=== PATIENT | male | born 1995 | race Caucasian/White ===

== ENCOUNTER 2022-11-23 20:24 | Emergency (ER) | payer OTHER ==
[~2022-11-23] VITALS: Ht 172.7 cm; Wt 83.9 kg
--- NOTE | 2022-11-23 20:50 | NUR ---
Patient ambulated to room #3, informed of plan of care, assisted into gown and placed on monitor. Awaiting MD exam. No s/s of ayana distress noted, will continue to monitor.
[2022-11-23] MEDS ORDERED: ALBU18HF2 IH (20:51)
[2022-11-23] MEDS ORDERED: HYDROCODONE/APAP 5-325MG TABLET PO ONE (21:00)
[2022-11-23] MEDS ORDERED: ALBUTEROL SULFATE 2.5 MG/3 ML NEBU NEB ONE (21:00)
[2022-11-23] MEDS ORDERED: IBUPROFEN 600 MG TABLET PO ONE (21:00)
[2022-11-23] MEDS ORDERED: IPRATROPIUM BROMIDE 0.5 MG/2.5 ML NEBU NEB ONE (21:00)
[2022-11-23] MEDS ORDERED: predniSONE 10 MG TABLET PO ONE (21:00)
[2022-11-23] MEDS ORDERED: ALBUTEROL SULFATE 2.5 MG/ 0.5 ML NEBU ONE (21:08)
[2022-11-23] MEDS ORDERED: predniSONE 50 MG TABLET ONE (21:09)
[2022-11-23] MEDS ORDERED: IBUPROFEN 600 MG TABLET ONE (21:10)
[2022-11-23] MEDS ORDERED: predniSONE 10 MG TABLET ONE (21:10)
[2022-11-23] MEDS ORDERED: HYDROCODONE/APAP 5-325MG TABLET ONE (21:10)
[2022-11-23] MEDS ORDERED: ALBUTEROL SULFATE 2.5 MG/3 ML NEBU ONE (21:13)
[2022-11-23] MEDS ORDERED: IPRATROPIUM BROMIDE 0.5 MG/2.5 ML NEBU ONE (21:13)
--- NOTE | 2022-11-23 21:16 | NUR ---
COVID swab done #20g established in left ac area, blood collected and sent to lab.
[2022-11-23] MEDS ORDERED: PRED20TA PO (21:22)
[2022-11-23] MEDS ORDERED: ALBU8.5H8 IH (21:22)
[2022-11-23] MEDS ORDERED: HYDR-4209 PO (21:22)
--- NOTE | 2022-11-23 22:19 | NUR ---
Patient feels better okay for discharge home, awaiting ACI.
--- NOTE | 2022-11-23 22:20 | NUR ---
ACI given states understanding, remains stable for discharge home.
[2022-11-23 22:21] VITALS: BP 136/77
== END 2022-11-23 22:26 | disposition home or self-care (01) ==
LOC: ER 20:32
DX: U07.1 COVID-19 (principal); J20.8 Acute bronchitis due to other specified organisms; Z88.0 Allergy status to penicillin; Z87.891 Personal history of nicotine dependence; J45.909 Unspecified asthma, uncomplicated
CPT/HCPCS: 99284; 71045; 87426; 94640; J7512 ×2; J3590

== ENCOUNTER 2023-05-17 16:59 | Emergency (ER) | payer MEDICAID, OTHER ==
[~2023-05-17] VITALS: Ht 172.7 cm; Wt 77.1 kg
[~2023-05-17 16:59] MED LIST: ALBU18HF2 IH; ALBU8.5H8 IH; HYDR-4209 PO; PRED20TA PO
[2023-05-17 17:38] LABS: CARBON DIOXIDE 23 mmol/L (21-32); CHLORIDE 104 mmol/L (98-107); CREATININE 0.8 mg/dL (0.6-1.3); HEMATOCRIT 45.3 % (36.7-47.1); MEAN CORPUSCULAR HEMOGLOBIN 31.8 uug (23.8-33.4); MEAN CORPUSCULAR VOLUME 92.5 fL (73.0-96.2); PLATELET COUNT (AUTO) 292 K/uL (152-348); POTASSIUM 3.7 mmol/L (3.5-5.1); UREA NITROGEN, BLOOD 8 mg/dL (7-18)
[2023-05-17 17:46] LABS: ALANINE AMINOTRANSFERASE 22 U/L (16-63); ALKALINE PHOSPHATASE 73 U/L (50-136); ASPARTATE AMINOTRANSFERASE 12 U/L (15-37); BILIRUBIN,DIRECT 0.2 mg/dL (0.0-0.2); BILIRUBIN,TOTAL 0.7 mg/dL (0.2-1.0); TOTAL PROTEIN, SERUM 7.1 g/dL (6.4-8.2)
--- NOTE | 2023-05-17 18:20 | NUR ---
Patient discharged to home in stable condition. Written and verbal after care instructions given. Patient verbalizes understanding of instructions. Stressed follow up or return to ER for worsening s/s.
[2023-05-17 18:23] VITALS: BP 122/70; TEMP 98; O2SAT 99
== END 2023-05-17 18:24 | disposition home or self-care (01) ==
LOC: ER 17:00
DX: R07.89 Other chest pain (principal); J45.909 Unspecified asthma, uncomplicated; F17.210 Nicotine dependence, cigarettes, uncomplicated; Z88.0 Allergy status to penicillin; Z79.899 Other long term (current) drug therapy
CPT/HCPCS: 36415; 71045; 84484; 85025; 93005; A4663